=== PATIENT | male | born 1990 | race Caucasian/White ===

== ENCOUNTER → 2020-05-12 10:57 | Outpatient (CLI) | payer BC, SELFPAY ==
[2020-05-13 16:27] LABS: SARS-CoV-2 RNA PCR Negative
== END ==
PROVIDERS: PCP Nurse Practitioner Family; Visit Provider Family Medicine
DX: Z20.822 Contact with and (suspected) exposure to COVID-19 (principal); R50.9 Fever, unspecified
CPT/HCPCS: C9803; U0003; U0005

== ENCOUNTER 2021-03-30 17:05 | Emergency (ER) | payer BC, MEDICAID, SELFPAY ==
--- NOTE | ~2021-03-30 | XR_ITS ---
XR chest 2V DATE: 03/30/2021 17:35 INDICATION: Left-sided chest pain and cough for one day TECHNIQUE: 2 views COMPARISON: 10/03/2018 2 view chest FINDINGS: Normal heart size. No hilar or mediastinal enlargement. No pulmonary infiltrate or consolid ation, pleural effusion or pulmonary vascular congestion or pneumothorax. IMPRESSION: No active cardiopulmonary disease Reviewed, dictated and finalized at location A. NIZATIONAL DEVELOPMENT DIRECTOR
[2021-03-30 17:17] VITALS: BP 139/88; PULSE 106; RESP 18; TEMP 37.1; O2SAT 98
[2021-03-30 17:19] VITALS: BP 139/88; PULSE 106; RESP 18; TEMP 37.1; O2SAT 98
--- NOTE | 2021-03-30 17:26 | ED.SOB ---
HPI - SOB/Dyspnea General Chief Complaint: Upper Respiratory Infection Stated Complaint: cp/sob Time Seen by Provider: 03/30/21 17:16 Mode of arrival: ambulatory Limitations: no limitations History of Present Illness HPI Narrative: 30-year-old male presents with concern for left rib pain upon inspiration and with certain movements. He reports he has had a cough for approximately a week, he is being treated with doxycycline after a visit to another urgent care several days ago. Reports he coughed and felt a sudden sharp pain. Reports he thinks he popped a rib. He denies shortness of breath. Reports left-sided rib tenderness. MD elicited complaint: pain with inspiration Related Data Home Medications Medication Instructions Recorded Confirmed doxycycline hyclate 100 mg PO DAILY 03/30/21 03/30/21 fluticasone propionate 50 mcg INTRANASAL DAILY 03/30/21 03/30/21 Allergies Allergy/AdvReac Type Severity Reaction Status Date / Time amoxicillin Allergy Intermediate Rash Unverified 03/30/21 17:17 Review of Systems Review of Systems: CONSTITUTIONAL: Denies malaise, chills, sweats, or fever. CARDIOVASCULAR: Denies chest pain, palpitations, or edema. RESPIRATORY: Reports cough, chest pain on inspiration and movement, pain with deep breathing SKIN: Denies bruising, open skin MUSCULOSKELETAL: Reports chest wall pain All systems reviewed & are unremarkable except as noted in HPI and below PMFSH Comments At time of signature, agree with nursing past medical, surgical, social and family history. There is no relevant family history pertinent to the presenting complaint Exam Narrative: GENERAL: Well-appearing, well-nourished, and in no acute distress. HEAD: Normocephalic, atraumatic. EYES: PERRLA, sclera clear, and EOMI. ENT: Mucous membranes moist. NECK: Supple. No lymphadenopathy. No jugular venous distension, thyromegaly, or carotid bruits. CHEST: No respiratory distress. Clear to auscultation. No bony deformities, no asymmetry. Speaks in full sentences. Mild left rib tenderness HEART: Regular rate and rhythm. No murmur heard. Normal peripheral pulses. SKIN: Warm, dry, no visible rash. NEURO: Alert and oriented x3. PSYCH: Normal mood and affect Course Course Emergency Course: Patient is aware of diagnosis, understands and agrees to treatment plan. Anticipatory guidance given. Patient agrees to follow-up as directed and is aware of reasons to seek care at the emergency department. Portions of this record may have been created with voice recognition software Level of Care: Express Care Visit Vital Signs Vital signs: Vital Signs Temperature 98.8 F 03/30/21 17:17 Pulse Rate 106 H 03/30/21 17:17 Respiratory Rate 18 03/30/21 17:17 Blood Pressure 139/88 03/30/21 17:17 Pulse Oximetry 98 03/30/21 17:17 Temperature 98.8 F 03/30/21 17:19 Pulse Rate 106 H 03/30/21 17:19 Respiratory Rate 18 03/30/21 17:19 Blood Pressure 139/88 03/30/21 17:19 Pulse Oximetry 98 03/30/21 17:19 Reviewed. MDM - SOB/Dyspnea MDM Narrative Medical decision making narrative: Exam findings and imaging show no acute concerns or changes; patient is non-toxic appearing and is in no distress. Patient is appropriate for outpatient treatment and follow-up. Differential Diagnosis Differential diagnosis: Likely community acquired pneumonia and other (Rib injury, cardiac event) Imaging Data Radiologist's impression: XR chest 2V DATE: 03/30/2021 17:35 INDICATION: Left-sided chest pain and cough for one day TECHNIQUE: 2 views COMPARISON: 10/03/2018 2 view chest FINDINGS: Normal heart size. No hilar or mediastinal enlargement. No pulmonary infiltrate or consolidation, pleural effusion or pulmonary vascular congestion or pneumothorax. IMPRESSION: No active cardiopulmonary disease Critical Care Time Critical Care Time Critical Care Time: No Discharge Plan Discharge Clinical Impression: Rib pain on left side
== END 2021-03-30 17:54 | disposition home or self-care (01) ==
PROVIDERS: Emergency Provider Nurse Practitioner
DX: R07.81 Pleurodynia (principal)
CPT/HCPCS: 71046; 99213; G0463

== ENCOUNTER 2021-05-26 11:20 | Emergency (ER) | payer BC, MEDICAID, SELFPAY ==
[2021-05-26 11:31] VITALS: BP 147/83; PULSE 83; RESP 16; TEMP 36.9; O2SAT 98
--- NOTE | 2021-05-26 12:02 | ED.URI ---
HPI - URI/Sore Throat General Chief Complaint: Upper Respiratory Infection Stated Complaint: Congestion Time Seen by Provider: 05/26/21 11:50 Source: patient and RN notes reviewed Mode of arrival: ambulatory Limitations: no limitations History of Present Illness HPI Narrative: Patient presents today with a 2-day history of nasal congestion, ear pain, cough. He has been taking some [id number] cold and flu medication without much relief. States that last week he had some diarrhea and vomiting that has since resolved. Denies any fever or shortness of breath. MD elicited complaint: cough and nasal congestion Related Data Home Medications Medication Instructions Recorded Confirmed No Home Medications 05/26/21 05/26/21 Allergies Allergy/AdvReac Type Severity Reaction Status Date / Time amoxicillin Allergy Intermediate Rash Unverified 03/30/21 17:17 Penicillins Allergy Rash Verified 05/26/21 11:49 Review of Systems Review of Systems: CONSTITUTIONAL: Denies body aches, fever, chills, or sweats. EYES: Denies visual changes, redness, or discharge. ENT: Denies rhinorrhea, sore throat.+ Congestion, ear pain CARDIOVASCULAR: Denies chest pain, palpitations, or edema. RESPIRATORY: Denies dyspnea.+ Cough GASTROINTESTINAL: Denies abdominal pain, nausea, vomiting, or diarrhea. GENITOURINARY: Denies dysuria or hematuria. SKIN: Denies rash, itching, or wounds. MUSCULOSKELETAL: Denies back pain, joint pain, or myalgia. NEUROLOGIC: Denies headache, numbness, tingling, or weakness. PSYCH: Denies depression or anxiety. PMFSH Comments At time of signature, I have reviewed and agree with nursing past medical, surgical, social and family history unless otherwise noted. Please see nursing chart for further information. There is no relevant family history pertinent to the presenting complaint Exam Narrative: GENERAL: Well-appearing, well-nourished, and in no acute distress. HEAD: Normocephalic, atraumatic. EYES: EOMI. No redness or drainage. Conjunctivae normal. ENT: Mucous membranes pink and moist. Nares clear. No rhinorrhea. TMs normal bilaterally. Throat normal. Uvula midline. NECK: Normal AROM. Supple. No lymphadenopathy. CHEST: No respiratory distress. Clear to auscultation. HEART: Regular rate and rhythm. No murmur appreciated. Normal peripheral pulses. EXTREMITIES: Normal range of motion. No edema. SKIN: Warm, dry, no rash. Capillary refill normal. Normal skin turgor. NEURO: No focal deficits. Alert and oriented x3. Gait steady. PSYCH: Normal affect. No signs of depression or anxiety. Course Course Level of Care: Express Care Visit Vital Signs Vital signs: Vital Signs Temperature 98.4 F 05/26/21 11:31 Pulse Rate 83 05/26/21 11:31 Respiratory Rate 16 05/26/21 11:31 Blood Pressure 147/83 H 05/26/21 11:31 Pulse Oximetry 98 05/26/21 11:31 Temperature 98.4 F 05/26/21 11:31 Pulse Rate 83 05/26/21 11:31 Respiratory Rate 16 05/26/21 11:31 Blood Pressure 147/83 H 05/26/21 11:31 Pulse Oximetry 98 05/26/21 11:31 Reviewed. Pt has been instructed to follow up with his PCP regarding his elevated blood pressure today. MDM - URI/Sore Throat Differential Diagnosis Differential diagnosis: Likely upper respiratory infection, otitis media, sinusitis, viral infection, bronchitis and other (COVID-19) Lab Data Attestation: I reviewed the patient's lab results. Lab results narrative: COVID-19 negative Critical Care Time Critical Care Time Critical Care Time: No Discharge Plan Discharge Clinical Impression: Upper respiratory infection Qualifiers: URI type: unspecified URI Qualified Code(s): J06.9 - Acute upper respiratory infection, unspecified Patient Disposition: Home, Self-Care Condition: Stable Instructions: Upper Respiratory Infection (DC) Additional Instructions: Your COVID-19 test is negative today. Your symptoms are likely due to a viral illness, which is not vivek
== END 2021-05-26 12:09 | disposition home or self-care (01) ==
PROVIDERS: Emergency Provider Nurse Practitioner
DX: J06.9 Acute upper respiratory infection, unspecified (principal); Z20.822 Contact with and (suspected) exposure to COVID-19
CPT/HCPCS: 87426; 99213; C9803; G0463

== ENCOUNTER 2021-09-14 17:40 | Emergency (ER) | payer BC, MEDICAID, SELFPAY ==
[2021-09-14 18:27] VITALS: BP 108/76; PULSE 90; RESP 20; TEMP 36.4; O2SAT 97
--- NOTE | 2021-09-14 18:44 | ED.BACK ---
HPI - Back Pain/Injury General Chief Complaint: Back Pain/Injury Stated Complaint: left side/back pain Time Seen by Provider: 09/14/21 18:48 History of Present Illness HPI Narrative: David Ramirez is a 30 yo male with PMH of low back pain comes out of sure dumping scooter yesterday with pain in his hip and lower back and mild abrasions on his left lower leg states he is having pain and ibuprofen 800 mg does not help Related Data Allergies Allergy/AdvReac Type Severity Reaction Status Date / Time amoxicillin Allergy Intermediate Rash Verified 09/14/21 18:14 Penicillins Allergy Rash Verified 09/14/21 18:14 Review of Systems Review of Systems: CONSTITUTIONAL: Denies fever, chills, sweats. EYES: Denies visual changes, redness, discharge. ENT: Denies rhinorrhea, congestion, sore throat, otalgia. CARDIOVASCULAR: Denies chest pain, palpitations, edema. RESPIRATORY: Denies dyspnea, wheezing, cough GASTROINTESTINAL: Denies abdominal pain, nausea, vomiting, diarrhea. GENITOURINARY: Denies dysuria, hematuria, abnormal discharge SKIN: Denies rash or itching. Abrasions to left lower leg NEUROLOGIC: Denies numbness, or focal weakness. PSYCHIATRIC: Denies anxiety or depression. States is having pain in hip and lower back, walked into [facility] PMFSH Past Medical History Medical History Back pain Social History Social History (Updated 09/14/21 @ 18:51 by Maya Dawkins CNP) Smoking status: Current some day smoker Comments At time of signature, I agree with nursing past medical, surgical, social and family history. There is no relevant family history pertinent to the presenting complaint. Exam Narrative: GENERAL: This is a well-nourished, well-developed patient, in mild distress. HEAD: normocephalic, atraumatic. EYES: . Sclera clear/white. Vision is grossly intact. EARS: External ears normal, Hearing grossly intact. NOSE: External nose normal without nasal discharge, nares without redness, no rhinorrhea. THROAT: Mucous membranes moist, NECK: Neck supple, non-tender CARDIOVASCULAR: Regular rate and rhythm without murmurs, gallops, or rubs. RESPIRATORY: Clear to auscultation. Breath sounds equal bilaterally. No wheezes, rales, or rhonchi. GASTROINTESTINAL: Not done SKIN: warm, intact with abrasions to the left lower extremity on the lateral side NEURO: awake, alert, and oriented to person, place and time. There were no obvious focal neurologic abnormalities. Steady gait EXTREMITIES: Normal range of motion. BACK complaining of lower back pain without deformity Course Course Emergency Course: Patient here after reported dumping falling off scooter yesterday has abrasion to left lower leg states it is hurting and so his lower back-offered Toradol want muscle relaxants and states that ibuprofen is working We do not have an x-ray tech here tonight and offered to send him to another location or to go to the emergency room Patient will try Toradol and if not improved will return for further evaluation Level of Care: Express Care Visit Vital Signs Vital signs: Vital Signs Temperature 97.6 F 09/14/21 18:27 Pulse Rate 90 09/14/21 18:27 Respiratory Rate 20 09/14/21 18:27 Blood Pressure 108/76 09/14/21 18:27 Pulse Oximetry 97 09/14/21 18:27 Oxygen Delivery Room Air 09/14/21 18:27 Temperature 97.6 F 09/14/21 18:27 Pulse Rate 90 09/14/21 18:27 Respiratory Rate 20 09/14/21 18:27 Blood Pressure 108/76 09/14/21 18:27 Pulse Oximetry 97 09/14/21 18:27 Oxygen Delivery Room Air 09/14/21 18:27 MDM - Back Pain/Injury Differential Diagnosis Differential diagnosis: Likely sciatica and other (Ankle sprain, hip strain, low muscle soreness) Discharge Plan Discharge Clinical Impression: Acute hip pain, Ankle pain Patient Disposition: Home, Self-Care Condition: Stable Instructions: Musculoskeletal Pain (ED) Additional
== END 2021-09-14 19:02 | disposition home or self-care (01) ==
PROVIDERS: Emergency Provider Nurse Practitioner
DX: M25.559 Pain in unspecified hip (principal); M25.572 Pain in left ankle and joints of left foot; F17.200 Nicotine dependence, unspecified, uncomplicated
CPT/HCPCS: 99213; G0463

== ENCOUNTER → 2022-05-11 14:33 | Outpatient (CLI) | payer BC, MEDICAID, SELFPAY ==
--- NOTE | ~2022-05-11 | XR_ITS ---
XR lumbar spine 2-3V DATE: 05/11/2022 15:10 INDICATION: Low back pain, right sciatica TECHNIQUE: AP, lateral views in COMPARISON: None FINDINGS: No fracture or dislocation, periosteal reaction or bone destruction or spondylolisthesis. The lumbar pedicles are intact. Lumbar and lumbosacral interspaces appear relatively preserved. The sacroiliac joints are intact. IMPRESSION: No significant abnormality Reviewed, dictated and finalized at location L. MAN IMPRESSION: No significant abnormality
--- NOTE | ~2022-05-11 | XR_ITS ---
XR chest 2V DATE: 05/11/2022 15:09 INDICATION: Dyspnea, shortness of breath, hemoptysis. Smoker. TECHNIQUE: 2 views COMPARISON: 03/30/2021 2 view chest FINDINGS: There is interval prominent lobular enlargement of both hilar areas since 03/30/2021 consist ent with prominent bilateral hilar lymphadenopathy. The lungs are moderately hyperinflated but clear of infiltrate or consolidation. No pleural effusion or pulmonary vascular congestion or pneumothorax. Normal heart size. Included skeletal structures are unremarkable. IMPRESSION: Prominent bilateral hilar lymphadenopathy, new since 03/30/2021 Reviewed, dictated and finalized at location L. PAPER MACHINE OPERATOR
== END ==
PROVIDERS: PCP Physician Assistant; Visit Provider Physician Assistant
DX: R06.09 Other forms of dyspnea (principal); M54.50 Low back pain, unspecified
CPT/HCPCS: 71046; 72100

== ENCOUNTER → 2022-05-18 10:15 | Outpatient (CLI) | payer BC, MEDICAID, SELFPAY ==
--- NOTE | ~2022-05-18 | CT_ITS ---
CT Scan of the Chest without Contrast: Clinical Indication: Localized enlarged lymph nodes Technique: Contiguous sections were acquired throughout the chest without intravenous contrast. Dose reduction technique was used on this scan by utilizing automated exposure control and iterative recon struction technique. The dose-length product (DLP) was 813.87 mGy-cm. Findings: There are numerous probable mildly enlarged mediastinal and bilateral hilar lymph nodes. No axillary lymphadenopathy. No aortic aneurysm.. There is no evidence of pleural or pericardial effusion. There are several small nodules along the right minor fissure (axial image 55 for example). There is a 5 mm left lower lobe pulmonary nodule peripherally (axial image 87). There is a 3 mm lingular nodul e (axial images 66-67). Images through the upper abdomen reveal no abnormalities. Impression: Mediastinal and bilateral hilar lymphadenopathy, otherwise nonspecific. Given patient age, sarcoid is a likely diagnosis. Other infectious/inflammatory conditions, or even lymphoma/metastatic disease wo uld be additional considerations. Clinical correlation required. Subcentimeter pulmonary nodules, as above. According to Fleischner Society criteria, for a low-risk p atient, no further follow-up required. For a high-risk patient, consider 12 month follow-up CT. Reviewed, dictated and finalized at location . Impression: Mediastinal and bilateral hilar lymphadenopathy, otherwise nonspecific. Given p atient age, sarcoid is a likely diagnosis. Other infectious/inflammatory condit ions, or even lymphoma/metastatic disease would be additional considerations. C linical correlation required. Subcentimeter pulmonary nodules, as above. According to Fleischner Society ericht osiel, for a low-risk patient, no further follow-up required. For a high-risk pa tient, consider 12 month follow-up CT.
--- NOTE | ~2022-05-18 | XR_ITS ---
EXAMINATION: XR thoracic spine 3V DATE: 05/18/2022 10:42 INDICATION: Chronic back pain TECHNIQUE: One AP, lateral and lateral swimmer's views of the thoracic spine were obtained. COMPARISON: Chest CT dated 05/18/2022 FINDINGS: 10 degrees lower thoracic levocurvature. Sagittal alignment is normal. Vertebral body heights are nor mal. Mild disc height loss at several levels the mid thoracic spine. Visualized portion of the lungs are clear with no pleural effusion or pneumothorax. Cardiomediastinal silhouette is normal. IMPRESSION: 1. Mild thoracic spondylosis. Reviewed, dictated and finalized at location L.
== END ==
PROVIDERS: PCP Physician Assistant; Visit Provider Physician Assistant
DX: R59.0 Localized enlarged lymph nodes (principal); M47.894 Other spondylosis, thoracic region
CPT/HCPCS: 71250; 72072

== ENCOUNTER → 2024-10-21 11:46 | Outpatient (CLI) | payer BC, MEDICAID, SELFPAY ==
--- NOTE | ~2024-10-21 | XR_ITS ---
CHEST RADIOGRAPH, PA AND LATERAL CLINICAL HISTORY: R06.02 - Shortness of breath . COMPARISON: 05/11/2022 TECHNIQUE: PA and lateral views of the chest. FINDINGS The cardiomediastinal silhouette is unremarkable. The lungs are clear. IMPRESSION: No focal infiltrate or effusion. Reviewed, dictated and finalized at location A.
== END ==
PROVIDERS: PCP Nurse Practitioner Family; Visit Provider Nurse Practitioner Family
DX: R06.02 Shortness of breath (principal)
CPT/HCPCS: 71046

== ENCOUNTER 2024-10-21 12:55 | Outpatient (CLI) | payer BC, MEDICAID, SELFPAY ==
[2024-10-21 13:28] LABS: Add Urine Microscopic? YES; Appearance Urine Cloudy (Clear); Glucose Urine UA Negative (Negative); Leukocyte Esterase Ur Negative LEU/UL (Negative); Nitrate Urine Negative (Negative); Non Pathogenic Casts 0-2; Specific Grav Ur 1.025 (1.001-1.035)
[2024-10-21 13:31] LABS: Hematocrit 47.8 % (42.0-52.0); Hemoglobin 15.9 g/dL (14.0-18.0); Immature Granulocyte Percent A 0.5 % (0-0.5); Lymphocytes Absolute Auto 2.49 K/mm3 (0.9-3.2); Mean Corpuscular HGB Conc 33.3 g/dl (32-36); Mean Corpuscular Hemoglobin 29.2 pg (26-34); Mean Corpuscular Volume 87.9 fl (80-100); Nucleated Red Blood Cells Absolute Auto 0.000 K/mm3 (0.0-0.012); Nucleated Red Blood Cells Perc 0.0 % (0.0-0.2); Platelet Count Result 236 k/mm3 (150-375); Red Blood Count 5.44 M/mm3 (4.6-6.20); White Blood Count 11.6 K/mm3 (4.5-10.0)
[2024-10-21 13:57] LABS: Alanine Aminotransferase 70 U/L (6-50); Albumin Level 4.6 g/dL (3.5-5.1); Alkaline Phosphatase 62 U/L (38-126); Anion Gap 10 mmol/L (4-12); Aspartate Amino Transferase 44 U/L (17-59); Bilirubin,Total 0.4 mg/dL (0.2-1.3); Blood Urea Nitrogen 13 mg/dL (9-20); Calcium 9.5 mg/dL (8.4-10.2); Carbon Dioxide 26 mmol/L (22-30); Chloride 102 mmol/L (98-107); Cholesterol 188 mg/dL (0-200); Estimated Glomerular Filt Rate > 60; Glucose 91 mg/dL (65-110); HDL Direct 38 mg/dL; Potassium 4.2 mmol/L (3.4-5.0); Sodium 138 mmol/L (137-145); Total Protein 8.4 g/dL (6.3-8.2); Triglycerides 185 mg/dL (<150)
[2024-10-21 16:53] LABS: Thyroid Stimulating Hormone Reflex 1.870 uIU/mL (0.465-4.68)
[2024-10-21 17:21] LABS: Hemoglobin A1C 6.0 % (<5.7)
[2024-10-29 12:04] LABS: Free Testosterone (Direct) 3.8 pg/mL (8.7-25.1)
== END 2024-10-21 12:56 | disposition home or self-care (01) ==
LOC: ANHLAB 12:57
PROVIDERS: PCP Nurse Practitioner Family; Visit Provider Nurse Practitioner Family
DX: Z13.1 Encounter for screening for diabetes mellitus (principal); R53.83 Other fatigue; Z68.42 Body mass index [BMI] 45.0-49.9, adult; Z13.6 Encounter for screening for cardiovascular disorders; Z13.29 Encounter for screening for other suspected endocrine disorder
CPT/HCPCS: 36415; 71046; 80053; 80061; 81001; 83036; 84402; 84403; 84443; 85025

== ENCOUNTER 2025-01-14 08:32 | Outpatient (CLI) | payer MEDICAID, SELFPAY ==
[2025-01-16 13:09] LABS: Free Testosterone (Direct) 10.0 pg/mL (8.7-25.1)
== END 2025-01-14 08:33 | disposition home or self-care (01) ==
LOC: ANHLAB 08:36
PROVIDERS: PCP Nurse Practitioner Family; Visit Provider Nurse Practitioner Family
DX: R79.89 Other specified abnormal findings of blood chemistry (principal)
CPT/HCPCS: 84402; 84403